=== PATIENT | female | born 1980 | race Two or more races ===

== ENCOUNTER 2021-08-07 18:22 | Observation (INO) | payer MEDICAID ==
[2021-08-07 19:39] LABS: Urine Bacteria NONE SEEN /hpf (None Seen); Urine Blood Negative /uL (Negative); Urine Mucus FEW (None Seen); Urine Specific Gravity 1.038 (1.001-1.035); Urine WBC 156 /hpf (0 - 5)
[2021-08-07 19:40] LABS: Alcohol, Urine < 3.0 mg/dL (0-10); Amphetamine Screen, Urine NEGATIVE (NEGATIVE); Benzodiazephine Screen, Urine NEGATIVE (NEGATIVE); Cannabinoid Screen, Urine NEGATIVE (NEGATIVE); Cocaine Screen, Urine NEGATIVE (NEGATIVE); Opiate Scree,Urine NEGATIVE (NEGATIVE); Phencyclidine Screen, Urine NEGATIVE (NEGATIVE)
[2021-08-07] MEDS ORDERED: PREN-96 PO (20:06)
[2021-08-07 20:47] LABS: Barbiturate Scree,Urine NEGATIVE (NEGATIVE)
== END 2021-08-07 20:22 | disposition home or self-care (01) ==
LOC: LDRP 18:22
PROVIDERS: ADMIT Obstetrics & Gynecology; ATTEND Obstetrics & Gynecology
DX: O26.893 Other specified pregnancy related conditions, third trimester (principal); R10.9 Unspecified abdominal pain; O62.9 Abnormality of forces of labor, unspecified; Z3A.30 30 weeks gestation of pregnancy; Z79.899 Other long term (current) drug therapy
CPT/HCPCS: 59025; 76815; 80307; 81001; 81002; G0378; G0379

== ENCOUNTER 2021-10-08 11:11 | Observation (INO) | payer MEDICAID ==
[~2021-10-08 11:11] MED LIST: PREN-96 PO
== END 2021-10-08 12:10 | disposition home or self-care (01) ==
LOC: LDRP 11:11
PROVIDERS: ADMIT Obstetrics & Gynecology; ATTEND Obstetrics & Gynecology
DX: O09.513 Supervision of elderly primigravida, third trimester (principal); Z3A.39 39 weeks gestation of pregnancy
CPT/HCPCS: 59025; 81002; 94760; G0378

== ENCOUNTER 2021-10-09 04:04 | Inpatient (IN) | payer MEDICAID ==
[2021-10-08 13:05] LABS: Albumin 2.6 g/dL (3.4-5.0); BUN/Creatinine Ratio 16.7; Calcium 8.8 mg/dL (8.5-10.1); Potassium 4.2 mmol/L (3.5-5.1)
[2021-10-08 13:06] LABS: Alcohol, Urine < 3.0 mg/dL (0-10); Amphetamine Screen, Urine NEGATIVE (NEGATIVE); Barbiturate Scree,Urine NEGATIVE (NEGATIVE); Benzodiazephine Screen, Urine NEGATIVE (NEGATIVE); Cannabinoid Screen, Urine NEGATIVE (NEGATIVE); Cocaine Screen, Urine NEGATIVE (NEGATIVE); Opiate Scree,Urine NEGATIVE (NEGATIVE); Phencyclidine Screen, Urine NEGATIVE (NEGATIVE)
[2021-10-08 13:07] LABS: Bilirubin, Total 0.3 mg/dL (0.2-1.0); Total Protein 6.5 g/dL (6.4-8.2)
[2021-10-08 13:29] LABS: Urine Bacteria FEW /hpf (None Seen); Urine Blood Negative /uL (Negative); Urine Specific Gravity 1.021 (1.001-1.035); Urine WBC 26 /hpf (0 - 5)
[2021-10-08 13:30] LABS: Basophils # (auto) 0 10 ^3/uL (0-0.2); Basophils % (auto) 0.3 % (0.0-2.0); Eosinophils # (auto) 0 10 ^3/uL (0-0.8); Eosinophils % (auto) 0.4 % (0.0-7.0); Hematocrit 37.1 % (36.0-46.0); Hemoglobin 12.5 g/dL (12.2-16.2); Lymphocytes # (auto) 1.8 10 ^3/uL (0.4-5.4); Lymphocytes % (auto) 21.4 % (10.0-50.0); Mean Corpuscular Hemoglobin 30.5 pg (28.0-32.0); Mean Corpuscular Hgb Conc. 33.7 g/dL (32.0-36.0); Mean Corpuscular Volume 90.5 fL (80.0-100.0); Monocytes # (auto) 0.3 10 ^3/uL (0-1.3); Monocytes % (auto) 3.1 % (0.0-12.0); Neutrophils # (auto) 6.3 10 ^3/uL (1.6-8.6); Neutrophils % (auto) 74.8 % (37.0-80.0); Nucleated Red Blood Cells % 0.1 %; Red Cell Distribution Width 14.3 % (11.8-14.3); White Blood Cell 8.4 10^3/uL (4.4-10.8)
[2021-10-08 13:41] LABS: INR 0.94 (0.9-1.15); Partial Thromboplastin Time 25.9 sec (23.6-33.0)
[~2021-10-09] VITALS: Ht 30.5 cm; Wt 0.5 kg
[2021-10-09] VITALS (17 sets, daily range): BP systolic 86–112; BP diastolic 38–68
[2021-10-09] MEDS ORDERED: ceFAZolin 1GM/50ML 50 ML IV ONE (04:30)
[2021-10-09] MEDS ORDERED: LACTATED RINGER'S 1,000 ML IV ONE (04:30)
[2021-10-09 06:06] LABS: RPR Non Reactive (Non Reactive)
[2021-10-09] MEDS ORDERED: TETRACAINE 1% INJ 2 ML VIAL IJ ONE (07:04)
[2021-10-09] MEDS ORDERED: MIDAZOLAM HCL 2MG/2ML 2ml VIAL (1mg/ml) ONE (07:06)
[2021-10-09] MEDS ORDERED: fentaNYL CITRATE 100 MCG/2 ML VL ONE (07:06)
[2021-10-09] MEDS ORDERED: ePHEDrine SULFATE 50 MG/ML AMP ONE (07:06)
[2021-10-09] MEDS ORDERED: oxyTOCIN 10 UNIT/ML 10ML VIAL ONE (07:06)
[2021-10-09] MEDS ORDERED: ONDANSETRON HCL 4 MG/2 ML VIAL ONE (07:06)
[2021-10-09] MEDS ORDERED: SODIUM CHLORIDE LOCK 10 ML ONE (07:06)
[2021-10-09] MEDS ORDERED: BUPIVACAINE/DEXTROSE MPF 0.75% 2 ML AMP IT ONE (07:08)
[2021-10-09] MEDS ORDERED: EPINEPHrine HCL 1 MG/10 ML SYRG ONE (07:08)
[2021-10-09] MEDS ORDERED: MORPHINE SULF PF 5 MG/10 ML VIAL ONE (07:10)
[2021-10-09] MEDS ORDERED: ONDANSETRON HCL 4 MG/2 ML VIAL IV PRN (07:15)
[2021-10-09] MEDS ORDERED: ceFAZolin 1GM/50ML 50 ML IV SCH (07:15)
[2021-10-09] MEDS ORDERED: LACT. RINGERS/OXYTOCIN 20UNITS 1,000 ML IV ONE (07:15)
[2021-10-09] MEDS ORDERED: HYDROmorphone HCL 2 MG/ML VL IV PRN (08:30)
[2021-10-09] MEDS ORDERED: diphenhdrAMINE HCL 50 MG/1 ML VL IV PRN (08:30)
[2021-10-09] MEDS ORDERED: METOCLOPRAMIDE HCL 5MG/ml INJ 2ml VIAL IV PRN (08:30)
[2021-10-09] MEDS ORDERED: KETOROLAC TROMETH 30 MG/ML 1ML VIAL IV PRN (08:30)
[2021-10-09] MEDS ORDERED: MORPHINE SULFATE 4 MG/ML SYR/VIAL IV PRN (08:30)
[2021-10-09] MEDS ORDERED: NALOXONE HCL 0.4 MG/ML VIAL IV PRN (08:30)
[2021-10-09] MEDS: LACTATED RINGER'S 1,000 ML IV SCH ×2 (12:30→14:42)
[2021-10-09] MEDS: ACETAMINOPHEN IV 1000 MG/100ML (10MG/ML) IV PRN ×2 (14:42→22:31)
[2021-10-09] MEDS: ceFAZolin 1GM/50ML 50 ML IV SCH ×2 (15:31→23:08)
[2021-10-09] MEDS ORDERED: RHO (D) IMMUNE GLOBULIN 300 MCG INJ IM ONE (21:45)
[2021-10-09 22:47] LABS: Basophils # (auto) 0.1 10 ^3/uL (0-0.2); Basophils % (auto) 0.4 % (0.0-2.0); Eosinophils # (auto) 0 10 ^3/uL (0-0.8); Hematocrit 34.4 % (36.0-46.0); Hemoglobin 11.6 g/dL (12.2-16.2); Lymphocytes # (auto) 1.2 10 ^3/uL (0.4-5.4); Lymphocytes % (auto) 8.9 % (10.0-50.0); Mean Corpuscular Hemoglobin 30.5 pg (28.0-32.0); Mean Corpuscular Hgb Conc. 33.8 g/dL (32.0-36.0); Mean Corpuscular Volume 90.4 fL (80.0-100.0); Monocytes # (auto) 0.2 10 ^3/uL (0-1.3); Monocytes % (auto) 1.8 % (0.0-12.0); Neutrophils # (auto) 12.1 10 ^3/uL (1.6-8.6); Neutrophils % (auto) 88.9 % (37.0-80.0); Red Blood Cells 3.81 10^6/uL (4.0-5.20); Red Cell Distribution Width 14.1 % (11.8-14.3); White Blood Cell 13.6 10^3/uL (4.4-10.8)
[2021-10-10] VITALS (9 sets, daily range): BP systolic 85–123; BP diastolic 53–71
[2021-10-10 06:57] LABS: Basophils # (auto) 0 10 ^3/uL (0-0.2); Basophils % (auto) 0.4 % (0.0-2.0); Eosinophils # (auto) 0 10 ^3/uL (0-0.8); Eosinophils % (auto) 0.1 % (0.0-7.0); Lymphocytes % (auto) 17.8 % (10.0-50.0); Mean Corpuscular Hemoglobin 30.7 pg (28.0-32.0); Mean Corpuscular Hgb Conc. 34.3 g/dL (32.0-36.0); Mean Corpuscular Volume 89.3 fL (80.0-100.0); Monocytes # (auto) 0.5 10 ^3/uL (0-1.3); Monocytes % (auto) 4.6 % (0.0-12.0); Neutrophils # (auto) 8.7 10 ^3/uL (1.6-8.6); Neutrophils % (auto) 77.1 % (37.0-80.0); Nucleated Red Blood Cells % 0.1 %; Red Blood Cells 3.58 10^6/uL (4.0-5.20); White Blood Cell 11.3 10^3/uL (4.4-10.8)
[2021-10-10] MEDS: ACETAMINOPHEN IV 1000 MG/100ML (10MG/ML) IV PRN (07:32)
[2021-10-10] MEDS: ceFAZolin 1GM/50ML 50 ML IV SCH (07:33)
[2021-10-10] MEDS ORDERED: BISACODYL 10 MG RECT SUPP PR PRN (12:15)
[2021-10-10] MEDS ORDERED: HYDROcodone-ACET 5/325MG TAB PO PRN (12:15)
[2021-10-10] MEDS: HYDROcodone-ACET 5/325MG TAB PO PRN ×3 (14:19→23:03)
[2021-10-10] MEDS: SIMETHICONE 80 MG CHEWABLE TABLET PO SCH ×2 (14:19→22:04)
[2021-10-10] MEDS ORDERED: IBUP800T27 PO (14:26)
[2021-10-10] MEDS ORDERED: HYDR-4902 PO (14:26)
[2021-10-10] MEDS ORDERED: DOCU-94 PO (14:26)
[2021-10-10] MEDS: IBUPROFEN 800 MG TAB PO PRN (21:17)
[2021-10-10] MEDS: DOCUSATE SOD 100 MG CAP PO SCH (22:04)
[2021-10-11] MEDS: HYDROcodone-ACET 5/325MG TAB PO PRN ×4 (03:04→16:57)
[2021-10-11 03:14] VITALS: BP 111/67
[2021-10-11] MEDS: IBUPROFEN 800 MG TAB PO PRN ×3 (05:32→21:51)
[2021-10-11] MEDS: SIMETHICONE 80 MG CHEWABLE TABLET PO SCH ×4 (05:32→21:51)
[2021-10-11 07:00] VITALS: BP 98/53
[2021-10-11 11:00] VITALS: BP 97/53
[2021-10-11] MEDS: DOCUSATE SOD 100 MG CAP PO SCH ×2 (11:42→21:51)
[2021-10-11] MEDS: DOCUSATE CALCIUM 240 MG CAP PO SCH (11:43)
[2021-10-11 15:00] VITALS: BP 100/61
[2021-10-11 19:30] VITALS: BP 103/54
[2021-10-11 23:00] VITALS: BP 114/71
[2021-10-12 03:30] VITALS: BP 121/69
[2021-10-12] MEDS: HYDROcodone-ACET 5/325MG TAB PO PRN ×2 (03:36→08:11)
[2021-10-12] MEDS: SIMETHICONE 80 MG CHEWABLE TABLET PO SCH (06:15)
[2021-10-12] MEDS: IBUPROFEN 800 MG TAB PO PRN (07:05)
[2021-10-12 07:07] VITALS: BP 125/71
[2021-10-12] MEDS: DOCUSATE CALCIUM 240 MG CAP PO SCH (10:21)
[2021-10-12] MEDS: DOCUSATE SOD 100 MG CAP PO SCH (10:21)
[2021-10-12 11:05] VITALS: BP 100/61
== END 2021-10-12 11:27 | disposition home or self-care (01) | DRG 539 ==
LOC: LDRP 04:04
PROVIDERS: ADMIT Obstetrics & Gynecology; ATTEND Obstetrics & Gynecology
PROC: 10D00Z1 Extraction of Products of Conception, Low, Open Approach (ICD-10-PCS; 2021-10-09)
PROC: 3E0234Z Introduction of Serum, Toxoid and Vaccine into Muscle, Percutaneous Approach (ICD-10-PCS; 2021-10-09)
PROC: 0UB70ZZ Excision of Bilateral Fallopian Tubes, Open Approach (ICD-10-PCS; principal; 2021-10-09 07:19)
DX: O34.211 Maternal care for low transverse scar from previous cesarean delivery (principal); R71.0 Precipitous drop in hematocrit; O26.893 Other specified pregnancy related conditions, third trimester; Z37.0 Single live birth; Z3A.39 39 weeks gestation of pregnancy; Z20.822 Contact with and (suspected) exposure to COVID-19; Z91.19 Patient's noncompliance with other medical treatment and regimen; Z30.2 Encounter for sterilization
CPT/HCPCS: 36415; 59025; 80053; 80307; 81001; 81002; 85025; 85610; 85730; 86592; 86850; 86870; 86900; 86901; 90384; 94760; 94762; 96360; 96361; 96365; 96366; 96372; G0378; J0131; J0690; J2250; J2405; J2590